=== PATIENT | male | born 1950 | race American Indian/Alaskan Native ===

== ENCOUNTER 2017-11-07 06:29 | Observation (INO) | payer MEDICARE, OTHER ==
[~2017-11-07 06:29] MED LIST: ANCEF/STERILE WATER 2 GM/20 ML 2 GM/20 ML SYRINGE IV NR
[2017-11-07 07:22] LABS: Basophils % (Auto) 0.2 % (0.0-1.8); Eosinophils # (Auto) 0.1 K/mm3 (0.0-0.4); Eosinophils % (Auto) 1.4 % (0.0-4.3); Hematocrit 33.3 % (35.5-45.6); Lymphocytes # (Auto) 1.7 K/mm3 (1.2-5.4); Lymphocytes % (Auto) 25.1 % (13.4-35.0); Mean Corpuscular HGB Conc 33 % (32-34); Mean Corpuscular Hemoglobin 27 pg (28-32); Mean Corpuscular Volume 81 fl (84-94); Monocytes # (Auto) 0.8 K/mm3 (0.0-0.8); Monocytes % (Auto) 11.1 % (0.0-7.3); Platelet Count 277 K/mm3 (140-440); Red Cell Distribution Width 16.2 % (13.2-15.2)
[2017-11-07 07:32] LABS: INR 0.9 (0.87-1.13)
[2017-11-07 07:33] LABS: Partial Thromboplastin Time 29.6 Sec. (24.2-36.6)
[2017-11-07] MEDS: NACL 0.9% 1000 ML 1,000 ML IV SCH (08:17)
[2017-11-07] MEDS ORDERED: VERSED ONE ×2 (08:24→10:54)
[2017-11-07] MEDS ORDERED: SUBLIMAZE ONE ×2 (08:25→10:54)
[2017-11-07] MEDS ORDERED: HEPARIN 10,000 UNITS/10 ML ONE ×2 (08:27→09:48)
[2017-11-07] MEDS ORDERED: ANCEF/STERILE WATER 2 GM/20 ML 0 GM/0 ML SYRINGE IV ONE (08:27)
[2017-11-07] MEDS ORDERED: HEPARIN/NS 5000 UNIT/500ML(CATH LAB) 0 ML IR ONE (08:27)
[2017-11-07] MEDS ORDERED: XYLOCAINE 2% INFILTRATI ONE (08:27)
[2017-11-07 08:41] LABS: BUN/Creatinine Ratio 19; Blood Urea Nitrogen 21 mg/dL (9-20); Calcium 9.1 mg/dL (8.4-10.2); Hemolysis Index 10
[2017-11-07] MEDS ORDERED: D50W (25GM) Syringe IV PRN (08:54)
[2017-11-07] MEDS: HumuLIN R SUB-Q SCH ×2 (09:08→11:57)
[2017-11-07] MEDS ORDERED: HEPARIN/NS 5000 UNIT/500ML(CATH LAB) 1,000 ML IR ONE (09:48)
[2017-11-07] MEDS: SUBLIMAZE ONE ×2 (09:59→10:04)
[2017-11-07] MEDS: VERSED ONE ×2 (09:59→10:04)
[2017-11-07] MEDS: XYLOCAINE 2% INFILTRATI ONE ×2 (10:02→10:10)
--- NOTE | 2017-11-07 11:51 | Operative Report ---
Operative Report Operative Report: Operative note: Date: 11/07/2017 Preoperative diagnosis:. Chronic venous insufficiency, common iliac vein compression Postoperative diagnosis: Same. Operation: Bilateral ultrasound-guided venous access, upper thigh great saphenous vein on the left side and femoral vein proximally on the right side. Bilateral venogram. Intravascular ultrasound of distal IVC, bilateral common and external iliac, common femoral veins. Bilateral common and external iliac stenting with 18 x 90 Wallstent. Surgeon: Delia Dia. Asst.: none Anesthesia: Moderate sedation EBL: Minimal Findings: Bilateral common and external iliac stenosis Indications: 66-year-old gentleman with suffering from venous insufficiency that did not respond to conservative management, underwent bilateral greater saphenous vein ablation and continued to suffer from symptoms of edema and pain. She was explained that as a next step suspicious of pelvic vein compression I will perform venogram was intravascular ultrasound. All risks, benefits and alternatives were explained in detail to the patient and he agreed. Signed informed consent. Operative details: Patient was brought to the Nurses Assistant and placed in supine position. Bilateral femoral area and upper thigh medially were prepped and draped in sterile fashion. Timeout was performed. Right femoral vein proximally was accessed under ultrasound guidance with micropuncture needle and exchanged the micropuncture sheath. That was upsized to 5 Filipino access sheath. Next, left access was performed in the great saphenous vein was micropuncture needle and that was upsized to micropuncture sheath and then 5 Filipino access sheath. Venogram was performed bilaterally noting any of the contrast on the right common iliac side. Bilateral wire access was done with Cervantes on the right side and J-wire and left side. In plan for intervention on the bilaterally 5 Filipino sheaths were upsized to 10 Filipino sheath. IVUS was done noting a lot of scarring and stenosis of the bilateral common and iliac veins. At this point stenosis points were marked on the screen as well as venous confluence. Patient was heparinized with 3000 units of heparin. Initially bilaterally I predilated with 12mm [place] balloon and then with 16mm [place]. Then bilateral Wallstents were deployed size 18 x 90, I extended left side with another 18x60 Wallstent.. Then balloon angioplasty with 16 mm [place] balloon was performed inside stents. IVUS was done bilaterally noting good stent upposition. Wires were removed and sheath were pulled, manual pressure held. Pressure dressing were applied. Patient tolerated procedure well.
--- NOTE | 2017-11-07 11:56 | Short Stay Summary ---
Short Stay Documentation Date of service: 11/07/17 - History H&P: obtained from office - Allergies and Medications Current Medications: Allergies No Known Allergies Allergy (Verified 11/07/17 07:52) Home Medications Medication Instructions Recorded Confirmed Last Taken Type Atorvastatin [Lipitor] 40 mg PO HS 11/07/17 11/07/17 11/05/17 History 40mg Clopidogrel Bisulfate [Clopidogrel] 75 mg PO DAILY 11/07/17 11/07/17 11/07/17 06 :00 History 75mg Gabapentin [Neurontin] 300 mg PO BID 11/07/17 11/07/17 11/05/17 History 300mg Insulin Aspart [NovoLOG Flexpen] 20 units SQ TID 11/07/17 11/07/17 11/06/17 History 20units Insulin Glargine,Hum.rec.anlog 60 unit SQ HS 11/07/17 11/07/17 11/05/17 History [Lantus Solostar] 60units Losartan Potassium 100 mg PO DAILY 11/07/17 11/07/17 11/07/17 06:00 History 100mg Metformin HCl [Glucophage] 1,000 mg PO BID 11/07/17 11/07/17 11/05/17 History 1000mg Metoprolol [Lopressor TAB] 25 mg PO DAILY 11/07/17 11/07/17 11/05/17 History 25mg Rivaroxaban [Xarelto] 15 mg PO DAILY 11/07/17 11/07/17 11/07/17 05:30 History 15mg Active Medications Acetaminophen/Hydrocodone Bitart ([place] 10/325) 1 each PO ONCE ONE Stop: 11/07/17 12:01 Dextrose (D50w (25gm) Syringe) 50 ml IV PRN PRN PRN Reason: Hypoglycemia Cefazolin Sodium (Ancef/Sterile Water 2 Gm/20 Ml) 2 gm in 20 mls @ 80 mls/hr IV PREOP NR; Protocol Stop: 11/07/17 15:00 Sodium Chloride (Nacl 0.9% 1000 Ml) 1,000 mls @ 42 mls/hr IV DIRECT FELTON Last Admin: 11/07/17 08:17 Dose: 42 mls/hr Insulin Human Regular (Humulin R) 0 units SUB-Q ACHS FELTON; Protocol Last Admin: 11/07/17 09:08 Dose: 8 units Morphine Sulfate (Morphine) 4 mg IV ONCE ONE Stop: 11/07/17 12:43 - Brief post op/procedure progress note Date of procedure: 11/07/17 Pre-op diagnosis: chronic venous insufficiency, iliac vein compression Procedure: Bilateral ultrasound-guided venous access, upper thigh great saphenous vein on the left side and femoral vein proximally on the right side. Bilateral venogram. Intravascular ultrasound of distal IVC, bilateral common and external iliac, common femoral veins. Bilateral common and external iliac stenting with 18 x 90 Wallstent. Anesthesia: MAC Findings: Bilateral common and external iliac vein compression Surgeon: ALIDA CHOWDHURY Estimated blood loss: none Pathology: none Condition: stable - Disposition Condition at discharge: Good Disposition: DC-01 TO HOME OR SELFCARE Short Stay Discharge Plan Diet: regular Wound: remove dressing (tomorrow) Special Instructions: no heavy lifting Follow up with: ALIDA CHOWDHURY DO [Primary Care Provider] - 14 Days Prescriptions: HYDROcodone/APAP 10-325 [[place] 10/325] 1 each PO Q6HR PRN #28 tablet PRN Reason: Pain
[2017-11-07] MEDS ORDERED: NORCO 10/325 PO ONE (12:00)
[2017-11-07] MEDS ORDERED: ZOFRAN IV ONE (12:01)
[2017-11-07] MEDS ORDERED: ZOFRAN ONE (12:03)
[2017-11-07] MEDS ORDERED: MORPHINE IV ONE (12:42)
[2017-11-07] MEDS ORDERED: TORADOL IV ONE (13:43)
[2017-11-07] MEDS ORDERED: TORADOL IV PRN (14:15)
[2017-11-07] MEDS ORDERED: MORPHINE IV PRN ×2 (14:17→16:52)
[2017-11-07] MEDS ORDERED: DILAUDID IV ONE (14:56)
[2017-11-07] MEDS ORDERED: DILAUDID IV PRN (16:21)
[2017-11-07] MEDS ORDERED: HumuLIN R SUB-Q ONE (16:29)
--- NOTE | 2017-11-07 16:51 | History and Physical Report ---
History of Present Illness Date of examination: 11/07/17 Date of admission: 11/07/17 16:03 Chief complaint: Severe LE pain after operative procedure History of present illness: ANALILIA Patient had Venous stents placed bilaterally for opening up veins which were scarred sec to DVt,s .Patient in Intractable pain -Hence being admitted for observation for 23 hours Pre-op diagnosis: chronic venous insufficiency, iliac vein compression Procedure: Bilateral ultrasound-guided venous access, upper thigh great saphenous vein on the left side and femoral vein proximally on the right side. Bilateral venogram. Intravascular ultrasound of distal IVC, bilateral common and external iliac, common femoral veins. Bilateral common and external iliac stenting with 18 x 90 Wallstent. Past History Past Medical History: diabetes, hypertension, hyperlipidemia, PVD, other (PN) Past Surgical History: appendectomy, hernia repair, PTCA, Other (Bilateral venous stents today) Social history: lives with family, full code Family history: hypertension Medications and Allergies Allergies Allergy/AdvReac Type Severity Reaction Status Date / Time No Known Allergies Allergy Verified 11/07/17 07:52 Home Medications Medication Instructions Recorded Confirmed Last Taken Type Atorvastatin [Lipitor] 40 mg PO HS 11/07/17 11/07/17 11/05/17 History 40mg Clopidogrel Bisulfate [Clopidogrel] 75 mg PO DAILY 11/07/17 11/07/17 11/07/17 06 :00 History 75mg Gabapentin [Neurontin] 300 mg PO BID 11/07/17 11/07/17 11/05/17 History 300mg HYDROcodone/APAP 10-325 [[place] 1 each PO Q6HR PRN #28 tablet 11/07/17 Unknown Rx 10/325] Insulin Aspart [NovoLOG Flexpen] 20 units SQ TID 11/07/17 11/07/17 11/06/17 History 20units Insulin Glargine,Hum.rec.anlog 60 unit SQ HS 11/07/17 11/07/17 11/05/17 History [Lantus Solostar] 60units Losartan Potassium 100 mg PO DAILY 11/07/17 11/07/17 11/07/17 06:00 History 100mg Metformin HCl [Glucophage] 1,000 mg PO BID 11/07/17 11/07/17 11/05/17 History 1000mg Metoprolol [Lopressor TAB] 25 mg PO DAILY 11/07/17 11/07/17 11/05/17 History 25mg Rivaroxaban [Xarelto] 15 mg PO DAILY 11/07/17 11/07/17 11/07/17 05:30 History 15mg Active Meds: Active Medications Acetaminophen/Hydrocodone Bitart ([place] 10/325) 1 each PO Q4H PRN PRN Reason: Pain, Moderate (4-6) Dextrose (D50w (25gm) Syringe) 50 ml IV PRN PRN PRN Reason: Hypoglycemia Hydromorphone HCl (Dilaudid) 2 mg IV Q4H PRN PRN Reason: Pain, Moderate (4-6) Sodium Chloride (Nacl 0.9% 1000 Ml) 1,000 mls @ 42 mls/hr IV DIRECT FELTON Last Admin: 11/07/17 08:17 Dose: 42 mls/hr Insulin Human Regular (Humulin R) 0 units SUB-Q ACHS FELTON; Protocol Last Admin: 11/07/17 11:57 Dose: 8 units Ketorolac Tromethamine (Toradol) 30 mg IV Q8H PRN PRN Reason: Pain, Moderate (4-6) Stop: 11/12/17 14:14 Morphine Sulfate (Morphine) 4 mg IV Q4H PRN PRN Reason: Pain, Moderate (4-6) Review of Systems All systems: negative Musculoskeletal: shooting leg pain, other (Severe intractable pain after procedure) Exam - Constitutional Vitals: Temp Pulse Resp BP Pulse Ox 98.3 F 81 18 140/70 96 11/07/17 11:44 11/07/17 16:03 11/07/17 16:38 11/07/17 16:03 11/07/17 16:03 General appearance: Present: no acute distress, well-nourished - EENT Eyes: Present: PERRL ENT: hearing intact, clear oral mucosa - Neck Neck: Present: supple, normal ROM - Respiratory Respiratory effort: normal Respiratory: bilateral: CTA - Cardiovascular Heart Sounds: Present: S1 & S2. Absent: rub, click - Extremities Extremities: pulses symmetrical, No edema Peripheral Pulses: within normal limits - Abdominal General gastrointestinal: Present: soft, non-tender, non-distended, normal bowel sounds Male genitourinary: Present: normal - Integumentary Integumentary: Present: clear, warm, dry - Musculoskeletal Musculoskeletal: gait normal, strength equal bilaterally - Psychiatric Psychiatric: appropriate mood/affect, intact judgment & insight - Neurologic Neurologic: CNII-XII intact, moves all extremities Results - Labs CBC & Chem 7: 11/07/17 07:13 11/08/17 03:16 Labs: Laboratory Last Values WBC 6.8 K/mm3 (4.5-11.0) 11/07/17 07:13 RBC 4.10 M/mm3 (3.65-5.03) 11/07/17 07:13 Hgb 11.0 gm/dl (11.8-15.2) L 11/07/17 07:13 Hct 33.3 % (35.5-45.6) L 11/07/17 07:13 MCV 81 fl (84-94) L 11/07/17 07:13 MCH 27 pg (28-32) L 11/07/17 07:13 MCHC 33 % (32-34) 11/07/17 07:13 RDW 16.2 % (13.2-15.2) H 11/07/17 07:13 Plt Count 277 K/mm3 (140-440) 11/07/17 07:13 Lymph % (Auto) 25.1 % (13.4-35.0) 11/07/17 07:13 [place] % (Auto) 11.1 % (0.0-7.3) H 11/07/17 07:13 Eos % (Auto) 1.4 % (0.0-4.3) 11/07/17 07:13 Baso % (Auto) 0.2 % (0.0-1.8) 11/07/17 07:13 Lymph # 1.7 K/mm3 (1.2-5.4) 11/07/17 07:13 [place] # 0.8 K/mm3 (0.0-0.8) 11/07/17 07:13 Eos # 0.1 K/mm3 (0.0-0.4) 11/07/17 07:13 Baso # 0.0 K/mm3 (0.0-0.1) 11/07/17 07:13 Seg Neutrophils % 62.2 % (40.0-70.0) 11/07/17 07:13 Seg Neutrophils # 4.2 K/mm3 (1.8-7.7) 11/07/17 07:13 PT 12.6 Sec. (12.2-14.9) 11/07/17 07:13 INR 0.90 (0.87-1.13) 11/07/17 07:13 APTT 29.6 Sec. (24.2-36.6) 11/07/17 07:13 Sodium 134 mmol/L (137-145) L 11/07/17 07:13 Potassium 4.2 mmol/L (3.6-5.0) 11/07/17 07:13 Chloride 95.8 mmol/L (98-107) L 11/07/17 07:13 Carbon Dioxide 24 mmol/L (22-30) 11/07/17 07:13 Anion Gap 18 mmol/L 11/07/17 07:13 BUN 21 mg/dL (9-20) H 11/07/17 07:13 Creatinine 1.1 mg/dL (0.8-1.5) 11/07/17 07:13 Estimated GFR > 60 ml/min 11/07/17 07:13 BUN/Creatinine Ratio 19 % 11/07/17 07:13 Glucose 445 mg/dL (75-100) H 11/07/17 07:13 POC Glucose 378 (70-105) H 11/07/17 11:42 Calcium 9.1 mg/dL (8.4-10.2) 11/07/17 07:13 Assessment and Plan Advance Directives: Yes (full code) VTE prophylaxis?: Chemical - Patient Problems (1) Intractable pain Current Visit: Yes Status: Acute Plan to address problem: Sec to Venous stents Admit for 23 hours and discharge on appropriate pain meds after D/w Vascular surger. Will defer to primary Hospitalist team (2) IDDM (insulin dependent diabetes mellitus) Current Visit: Yes Status: Chronic Plan to address problem: Coverage (3) HLD (hyperlipidemia) Current Visit: Yes Status: Acute (4) HLD (hyperlipidemia) Current Visit: Yes Status: Chronic Qualifiers: Hyperlipidemia type: mixed hyperlipidemia Qualified Code(s): E78.2 - Mixed hyperlipidemia Plan to address problem: Cont Statins (5) Peripheral neuropathy Current Visit: Yes Status: Chronic Qualifiers: Peripheral neuropathy type: polyneuropathy, unspecified Qualified Code(s): G62.9 - Polyneuropathy, unspecified Plan to address problem: On Gabapentin (6) HTN (hypertension) Current Visit: Yes Status: Chronic Plan to address problem: Cont antihypertensives (7) DVT prophylaxis Current Visit: Yes Status: Acute Plan to address problem: On Xarelto
[2017-11-07] MEDS ORDERED: TYLENOL PO PRN (16:52)
[2017-11-07] MEDS ORDERED: ZOFRAN IV PRN (16:52)
[2017-11-07] MEDS ORDERED: PHENERGAN PR PRN (16:52)
[2017-11-07] MEDS ORDERED: SODIUM CHLORIDE FLUSH SYRINGE 10 ML IV PRN (16:52)
[2017-11-07] MEDS ORDERED: REGLAN IV PRN (16:52)
[2017-11-07] MEDS ORDERED: PERCOCET 5/325 PO PRN (16:52)
[2017-11-07] MEDS ORDERED: NON-FORMULARY (Losartan Potassium [Losartan Potassium] 100 MG) PO SCH (17:00)
[2017-11-07] MEDS: NORCO 10/325 PO PRN ×2 (17:33→21:43)
[2017-11-07] MEDS: PEPCID PO SCH (21:41)
[2017-11-07] MEDS: LOPRESSOR PO SCH (21:42)
[2017-11-07] MEDS: NEURONTIN PO SCH (21:42)
[2017-11-07] MEDS ORDERED: INSULIN GLARGINE HUM REC ANLOG 60 UNIT SQ SCH (22:00)
[2017-11-07] MEDS ORDERED: LANTUS SUB-Q SCH (22:00)
[2017-11-07] MEDS: GLUCOPHAGE PO SCH (22:45)
[2017-11-07] MEDS: HumaLOG SUB-Q SCH (23:09)
[2017-11-07] MEDS: SODIUM CHLORIDE FLUSH SYRINGE 10 ML IV SCH (23:13)
[2017-11-08 04:39] LABS: Alanine Aminotransferase 25 units/L (7-56); Albumin 3.6 g/dL (3.9-5); BUN/Creatinine Ratio 22; Blood Urea Nitrogen 26 mg/dL (9-20); Calcium 8.6 mg/dL (8.4-10.2); Hemolysis Index 0
[2017-11-08] MEDS: NACL 0.9% 1000 ML 1,000 ML IV SCH (05:47)
[2017-11-08] MEDS: GLUCOPHAGE PO SCH (09:14)
[2017-11-08] MEDS: PEPCID PO SCH (09:15)
[2017-11-08] MEDS: LOPRESSOR PO SCH (09:46)
[2017-11-08] MEDS: NORCO 10/325 PO PRN (09:46)
[2017-11-08] MEDS: NEURONTIN PO SCH (09:47)
[2017-11-08] MEDS: SODIUM CHLORIDE FLUSH SYRINGE 10 ML IV SCH (09:51)
[2017-11-08] MEDS ORDERED: COZAAR PO SCH (10:00)
[2017-11-08] MEDS ORDERED: PLAVIX PO SCH (10:00)
[2017-11-08] MEDS ORDERED: XARELTO PO SCH (10:00)
[2017-11-08] MEDS: HumaLOG SUB-Q SCH (10:54)
[2017-11-08] MEDS ORDERED: HumaLOG SUB-Q SCH (11:30)
--- NOTE | 2017-11-08 11:35 | Progress Note ---
Assessment and Plan Okay to discharge patient home. Subjective Date of service: 11/08/17 Interval history: Patient admitted is status post venogram for severe pain. His pain has nearly completely resolved this morning. He describes his legs as feeling better. Objective - Constitutional Vitals: Vital Signs - 12hr 11/07/17 11/08/17 11/08/17 23:58 03:55 05:47 Temperature 98.3 F 98.2 F Pulse Rate 64 64 Respiratory 20 20 17 Rate Blood Pressure 141/76 171/90 Blood Pressure [Left] O2 Sat by Pulse 91 97 Oximetry 11/08/17 11/08/17 11/08/17 06:17 07:05 09:45 Temperature 97.5 F L Pulse Rate 73 73 Respiratory 17 18 Rate Blood Pressure 149/67 Blood Pressure 149/67 [Left] O2 Sat by Pulse 99 Oximetry 11/08/17 09:46 Temperature Pulse Rate 73 Respiratory 20 Rate Blood Pressure 149/67 Blood Pressure [Left] O2 Sat by Pulse Oximetry General appearance: Present: no acute distress - EENT Eyes: PERRL ENT: hearing intact - Neck Neck: supple - Respiratory Respiratory effort: normal Extremity abnormal: edema - Gastrointestinal General gastrointestinal: Present: deferred - Genitourinary Male genitourinary: deferred - Psychiatric Psychiatric: appropriate mood/affect, cooperative - Labs CBC & Chem 7: 11/07/17 07:13 11/08/17 03:16 Labs: Abnormal lab results 11/07/17 11/07/17 11/07/17 Range/Units 07:13 11:42 16:25 Sodium (137-145) mmol/L BUN (9-20) mg/dL Glucose (75-100) mg/dL POC Glucose 378 H 463 H (70-105) Hemoglobin A1c 14.9 H (4-6) % Albumin (3.9-5) g/dL 11/07/17 11/08/17 11/08/17 Range/Units 21:32 03:16 08:26 Sodium 136 L (137-145) mmol/L BUN 26 H (9-20) mg/dL Glucose 301 H (75-100) mg/dL POC Glucose 361 H 393 H (70-105) Hemoglobin A1c (4-6) % Albumin 3.6 L (3.9-5) g/dL 11/08/17 Range/Units 11:28 Sodium (137-145) mmol/L BUN (9-20) mg/dL Glucose (75-100) mg/dL POC Glucose 391 H (70-105) Hemoglobin A1c (4-6) % Albumin (3.9-5) g/dL
--- NOTE | 2017-11-08 12:23 | Discharge Summary ---
Providers - Providers Date of Admission: 11/07/17 16:03 Date of discharge: 11/08/17 Attending physician: DEVEN HAWKINS 11/07/17 16:52 Consult to Physician [CONS] Routine Comment: Consulting Provider: ALIDA CHOWDHURY Physician Instructions: Reason For Exam: Venous insufficiency Primary care physician: ALIDA CHOWDHURY DO Hospitalization Condition: Good Disposition: DC-01 TO HOME OR SELFCARE Time spent for discharge: 31 min Core Measure Documentation - Palliative Care Palliative Care/ Comfort Measures: Not Applicable - Core Measures Any of the following diagnoses?: none Exam - Constitutional Vitals: Temp Pulse Resp BP Pulse Ox 97.5 F L 73 20 149/67 99 11/08/17 07:05 11/08/17 09:46 11/08/17 09:46 11/08/17 09:46 11/08/17 07:05 General appearance: Present: no acute distress, well-nourished - Neck Neck: Present: supple, normal ROM - Respiratory Respiratory effort: normal Respiratory: negative: rales, rhonchi, wheezing - Cardiovascular Rhythm: regular Heart Sounds: Present: S1 & S2 - Extremities Extremities: no ischemia, No edema - Abdominal General gastrointestinal: Present: soft, non-tender, non-distended, normal bowel sounds - Integumentary Integumentary: Present: clear, warm - Musculoskeletal Musculoskeletal: strength equal bilaterally - Psychiatric Psychiatric: appropriate mood/affect, cooperative - Neurologic Neurologic: CNII-XII intact, moves all extremities Plan Activity: advance as tolerated Diet: diabetic Additional Instructions: Follow-up primary care physician in one week/per schedule Follow up with: ALIDA CHOWDHURY DO [Primary Care Provider] - 14 Days Prescriptions: HYDROcodone/APAP 10-325 [[place] 10/325] 1 each PO Q6HR PRN #28 tablet PRN Reason: Pain HYDROcodone/APAP 10-325 [[place] 10/325] 1 each PO Q6HR PRN #40 tablet PRN Reason: Pain
[2017-11-08 12:49] VITALS: BP 174/78
[2017-11-08] MEDS ORDERED: TORADOL IV SCH (14:00)
[2017-11-08] MEDS ORDERED: INSULIN ASPART 20 UNIT SQ SCH (14:00)
== END 2017-11-08 12:45 | disposition home or self-care (01) ==
LOC: CATHLABREC 06:29 → 3A 16:03 → 3B-SURG 16:37
PROVIDERS: ADMIT Internal Medicine; ATTEND Internal Medicine
DX: I82.423 Acute embolism and thrombosis of iliac vein, bilateral (principal); I82.413 Acute embolism and thrombosis of femoral vein, bilateral; I10 Essential (primary) hypertension; E78.5 Hyperlipidemia, unspecified; I73.9 Peripheral vascular disease, unspecified; E11.42 Type 2 diabetes mellitus with diabetic polyneuropathy
CPT/HCPCS: 36415; 37238; 37239; 37252; 37253; 75822; 76937; 80048; 80053; 82962; 83036; 85025; 85610; 85730; 96372; 96374; 96375; 96376; A9270; C1725; C1753; C1769; C1876; G0378; J1170; J1644; J1885; J2250; J2270; J2405; J3010; J7030; J0690; J1815; Q9967